=== PATIENT | female | born 1975 | race Caucasian/White ===

== ENCOUNTER → 2016-09-22 | Outpatient (CLI) | payer BC ==
[~2016-09-22] MED LIST: FERR-63 PO; NEBI10TA2 PO; TRAM50TA3 PO; ZIAC10 PO
== END | disposition home or self-care (01) ==
LOC: MAMMO 07:33
PROVIDERS: ATTEND Internal Medicine Geriatric Medicine
DX: Z12.31 Encounter for screening mammogram for malignant neoplasm of breast (principal)
CPT/HCPCS: G0202

== ENCOUNTER → 2016-09-23 | Outpatient (CLI) | payer BC | END | disposition home or self-care (01) | LOC: CARD 08:56 | PROVIDERS: ATTEND Internal Medicine Geriatric Medicine | DX: I11.9 Hypertensive heart disease without heart failure (principal) | CPT/HCPCS: 93306 ==

== ENCOUNTER → 2016-10-09 | Outpatient (CLI) | payer BC ==
[~2016-10-09] MED LIST changes: -TRAM50TA3 PO; -ZIAC10 PO
== END | disposition home or self-care (01) ==
LOC: MAMMO 09:38
PROVIDERS: ATTEND Internal Medicine Geriatric Medicine
DX: R92.8 Other abnormal and inconclusive findings on diagnostic imaging of breast (principal)
CPT/HCPCS: 76641; G0206

== ENCOUNTER → 2016-10-13 | Outpatient (CLI) | payer BC | END | disposition home or self-care (01) | LOC: RAD 11:27 | PROVIDERS: ATTEND Internal Medicine Geriatric Medicine | DX: M25.461 Effusion, right knee (principal) | CPT/HCPCS: 73562 ==

== ENCOUNTER → 2016-10-15 | Outpatient (CLI) | payer BC | END | disposition home or self-care (01) | LOC: MRI 07:42 | PROVIDERS: ATTEND Internal Medicine Geriatric Medicine | DX: S83.211A Bucket-handle tear of medial meniscus, current injury, right knee, initial encounter (principal); S80.01XA Contusion of right knee, initial encounter; M65.9 Synovitis and tenosynovitis, unspecified; M25.461 Effusion, right knee; M94.261 Chondromalacia, right knee; X58.XXXA Exposure to other specified factors, initial encounter; Y93.89 Activity, other specified; Y92.89 Other specified places as the place of occurrence of the external cause; Y99.8 Other external cause status | CPT/HCPCS: 73721 ==

== ENCOUNTER → 2016-11-03 | Outpatient (CLI) | payer BC ==
[~2016-11-03] MED LIST changes: +TRAM50TA3 PO; +ZIAC10 PO
[2016-11-03 09:24] LABS: BASOPHILS % 1.3 % (0.0-2.0); EOSINOPHILS % 0.8 % (0.0-5.0); HEMATOCRIT. 39.2 % (36.0-48.0); HEMOGLOBIN. 13.4 g/dL (12.0-16.0); LYMPHOCYTES % 37.5 % (20.0-50.0); MEAN CORPUSCULAR HEMOGLOBIN 28.5 pg (28.0-32.0); MEAN CORPUSCULAR VOLUME 83.4 fL (81.0-99.0); MEAN PLATELET VOLUME 9.4 fl (7.4-10.4); NEUTROPHILS % 54.4 % (40.0-76.0); PLATELET 262 x1000/uL (130-400); RED CELL DISTRIBUTION WIDTH 14.4 % (11.6-14.6)
[2016-11-03 09:49] LABS: CARBON DIOXIDE 27 mEq/L (21-32); CHLORIDE 105 mEq/L (98-107); HDL CHOLESTEROL 40 mg/dL (40-59); LDL CHOLESTEROL 120 mg/dL (5-100); TOTAL IRON BINDING CAPACITY 296 ug/dL (250-450)
[2016-11-03 10:25] LABS: FOLIC ACID (FOLATE) SERUM 19.1 ng/mL (>5.38)
== END | disposition home or self-care (01) ==
LOC: LAB 08:52
PROVIDERS: ATTEND Internal Medicine Geriatric Medicine
DX: Z01.812 Encounter for preprocedural laboratory examination (principal); I10 Essential (primary) hypertension
CPT/HCPCS: 36415; 80053; 80061; 82306; 82607; 82728; 82746; 83036; 83540; 83550; 84443; 85025; 86592

== ENCOUNTER 2016-11-07 11:04 | Day surgery (SDC) | payer BC ==
[~2016-11-07] VITALS: Ht 152.4 cm; Wt 91.2 kg
[2016-11-07 11:37] LABS: UCG SCREEN NEGATIVE
[2016-11-07] MEDS ORDERED: LACTATED RINGERS 1,000 ML IV SCH (12:15)
[2016-11-07] MEDS ORDERED: MIDAZOLAM HCL 2 MG/2 ML VIAL ONE (12:30)
[2016-11-07] MEDS ORDERED: LIDOCAINE HCL 1% 20ML VIAL (Pyxis) INJ ONE (12:30)
[2016-11-07] MEDS ORDERED: PROPOFOL 200MG/20ML VIAL IV ONE (12:30)
[2016-11-07] MEDS ORDERED: BUPIVACAINE/EPINEPH/PF 0.25%/0.0005 10ML ONE (12:37)
[2016-11-07] MEDS ORDERED: FENTANYL CITRATE/PF 50MCG/ML 2ML VIAL ONE ×2 (12:38→13:22)
[2016-11-07] MEDS ORDERED: CEFAZOLIN SODIUM 1000MG/VIAL ONE (12:42)
[2016-11-07] MEDS ORDERED: DEXAMETHASONE 4MG/ML 1ML VIAL ONE (12:51)
[2016-11-07] MEDS ORDERED: ONDANSETRON HCL 4MG/2ML VIAL ONE (12:51)
[2016-11-07] MEDS ORDERED: SODIUM CHLORIDE 0.9% 1,000 ML IV SCH (13:51)
[2016-11-07] MEDS ORDERED: ONDANSETRON HCL 4MG/2ML VIAL IV PRN (14:00)
[2016-11-07] MEDS ORDERED: HYDROMORPHONE HCL/PF 2MG/ML CPJ IV PRN (14:00)
[2016-11-07 14:07] VITALS: BP 127/58
== END 2016-11-07 15:00 | disposition home or self-care (01) ==
LOC: OR 11:04
PROVIDERS: ATTEND Orthopaedic Surgery Sports Medicine
DX: S83.211A Bucket-handle tear of medial meniscus, current injury, right knee, initial encounter (principal); S83.281A Other tear of lateral meniscus, current injury, right knee, initial encounter; M22.41 Chondromalacia patellae, right knee; M23.91 Unspecified internal derangement of right knee; M65.861 Other synovitis and tenosynovitis, right lower leg; X58.XXXA Exposure to other specified factors, initial encounter; Y93.9 Activity, unspecified; Y92.89 Other specified places as the place of occurrence of the external cause; Y99.9 Unspecified external cause status; Z98.890 Other specified postprocedural states; I10 Essential (primary) hypertension; E66.01 Morbid (severe) obesity due to excess calories
CPT/HCPCS: 29879; 29881; 29882; 81025; 88304; 88311; C1713; J0171; J0690; J1100; J1170; J2250; J2405; J3010; J3490; J7120; J2704

== ENCOUNTER → 2017-11-26 | Outpatient (CLI) | payer BC ==
[2017-11-26 07:50] LABS: BASOPHILS % 1.2 % (0.0-2.0); EOSINOPHILS % 1.2 % (0.0-5.0); HEMATOCRIT. 33.2 % (36.0-48.0); HEMOGLOBIN. 10.9 g/dL (12.0-16.0); LYMPHOCYTES % 28.2 % (20.0-50.0); MEAN CORPUSCULAR HEMOGLOBIN 24.7 pg (28.0-32.0); MEAN CORPUSCULAR VOLUME 75.3 fL (81.0-99.0); MEAN PLATELET VOLUME 8.8 fl (7.4-10.4); MONOCYTES % 8.6 % (2.0-8.0); NEUTROPHILS % 60.8 % (40.0-76.0); PLATELET 360 x1000/uL (130-400); RED BLOOD CELL COUNT 4.41 mill/uL (4.2-5.4); RED CELL DISTRIBUTION WIDTH 18.2 % (11.6-14.6)
[2017-11-26 08:23] LABS: CLARITY URINE CLOUDY (CLEAR); COLOR URINE YELLOW (YELLOW); KETONES URINE NEGATIVE (NEGATIVE); LEUKOCYTE ESTERASE URINE NEGATIVE (NEGATIVE); NITRITE URINE NEGATIVE (NEGATIVE); OCCULT BLOOD URINE 3+ (NEGATIVE); PROTEIN URINE NEGATIVE (NEGATIVE); SPECIFIC GRAVITY URINE 1.022 (1.005-1.030); UROBILINOGEN URINE 0.2 E.U./dL (0.2-1.0)
[2017-11-26 08:24] LABS: CHLORIDE 106 mEq/L (98-107)
== END | disposition home or self-care (01) ==
LOC: LAB 07:01
PROVIDERS: ATTEND Internal Medicine Geriatric Medicine
DX: I10 Essential (primary) hypertension (principal); N39.0 Urinary tract infection, site not specified; R73.09 Other abnormal glucose
CPT/HCPCS: 36415; 80053; 81003; 83036; 85025; 87086

== ENCOUNTER 2018-06-21 09:30 | Emergency (ER) | payer BC ==
[~2018-06-21] VITALS: Ht 154.9 cm; Wt 100.0 kg
[2018-06-21 10:18] VITALS: BP 169/99
== END 2018-06-21 10:19 | disposition home or self-care (01) ==
LOC: ER 09:30
DX: H10.029 Other mucopurulent conjunctivitis, unspecified eye (principal); I10 Essential (primary) hypertension; F11.10 Opioid abuse, uncomplicated; Z91.040 Latex allergy status; Z98.890 Other specified postprocedural states
CPT/HCPCS: 99283

== ENCOUNTER → 2018-11-25 | Outpatient (CLI) | payer BC ==
[2018-11-25 07:23] LABS: BASOPHILS % 1.2 % (0.0-2.0); EOSINOPHILS % 1.1 % (0.0-5.0); HEMATOCRIT. 38.6 % (36.0-48.0); HEMOGLOBIN. 12.9 g/dL (12.0-16.0); LYMPHOCYTES % 39.7 % (20.0-50.0); MEAN CORPUSCULAR HEMOGLOBIN 26.4 pg (28.0-32.0); MEAN CORPUSCULAR VOLUME 78.7 fL (81.0-99.0); MONOCYTES % 6.5 % (2.0-8.0); NEUTROPHILS % 51.5 % (40.0-76.0); PLATELET 280 x1000/uL (130-400); RED CELL DISTRIBUTION WIDTH 16.6 % (11.6-14.6)
[2018-11-25 07:31] LABS: CLARITY URINE CLEAR (CLEAR); COLOR URINE DARK YELLOW (YELLOW); KETONES URINE TRACE (NEGATIVE); LEUKOCYTE ESTERASE URINE NEGATIVE (NEGATIVE); NITRITE URINE NEGATIVE (NEGATIVE); OCCULT BLOOD URINE NEGATIVE (NEGATIVE); PROTEIN URINE TRACE (NEGATIVE); SPECIFIC GRAVITY URINE 1.035 (1.005-1.030)
[2018-11-25 07:36] LABS: CHLORIDE 106 mEq/L (98-107)
[2018-11-25 07:45] LABS: LDL CHOLESTEROL 142 mg/dL (5-100)
[2018-11-25 07:48] LABS: HDL CHOLESTEROL 49 mg/dL (40-59)
[2018-11-25 07:49] LABS: TOTAL IRON BINDING CAPACITY 431 ug/dL (250-450)
[2018-11-25 08:30] LABS: FERRITIN 9 ng/mL (10-291)
[2018-11-25 08:31] LABS: CARCINO EMBRYONIC ANTIGEN 1.1 ng/ml
[2018-11-25 08:42] LABS: HEPATITIS B SURFACE ANTIGEN NEGATIVE
[2018-11-25 09:11] LABS: HEPATITIS A AB IGM NEGATIVE (NEGATIVE)
[2018-11-25 09:40] LABS: VITAMIN B12 SERUM 692 pg/mL (211-911)
[2018-11-26 09:08] LABS: HIV SCREEN 4G Non Reactive (Non Reactive); VITAMIN D 25-OH 36.9 ng/mL (30.0-100.0)
== END | disposition home or self-care (01) ==
LOC: LAB 06:45
PROVIDERS: ATTEND Internal Medicine Geriatric Medicine
DX: N39.0 Urinary tract infection, site not specified (principal); N95.9 Unspecified menopausal and perimenopausal disorder; E66.3 Overweight; I10 Essential (primary) hypertension
CPT/HCPCS: 36415; 80061; 81003; 82306; 82378; 82607; 82728; 83036; 83540; 83550; 84443; 86003; 86005; 86592; 86705; 86709; 86803; 87340; 87389

== ENCOUNTER → 2018-11-26 | Outpatient (CLI) | payer BC | END | disposition home or self-care (01) | LOC: MAMMO 07:40 | PROVIDERS: ATTEND Internal Medicine Geriatric Medicine | DX: Z12.31 Encounter for screening mammogram for malignant neoplasm of breast (principal) | CPT/HCPCS: 77067 ==

== ENCOUNTER → 2019-02-01 | Outpatient (CLI) | payer BC ==
[2019-02-01 10:56] LABS: CLARITY URINE CLEAR (CLEAR); COLOR URINE YELLOW (YELLOW); KETONES URINE NEGATIVE (NEGATIVE); LEUKOCYTE ESTERASE URINE NEGATIVE (NEGATIVE); NITRITE URINE NEGATIVE (NEGATIVE); OCCULT BLOOD URINE NEGATIVE (NEGATIVE); PROTEIN URINE NEGATIVE (NEGATIVE); SPECIFIC GRAVITY URINE 1.015 (1.005-1.030); UROBILINOGEN URINE 0.2 E.U./dL (0.2-1.0)
== END | disposition home or self-care (01) ==
LOC: LAB 10:06
PROVIDERS: ATTEND Internal Medicine Geriatric Medicine
DX: N39.0 Urinary tract infection, site not specified (principal)
CPT/HCPCS: 81003

== ENCOUNTER → 2019-05-04 | Outpatient (CLI) | payer BC ==
[2019-05-04 07:36] LABS: BASOPHILS % 1.2 % (0.0-2.0); EOSINOPHILS % 0.8 % (0.0-5.0); HEMATOCRIT. 39.2 % (36.0-48.0); HEMOGLOBIN. 13.2 g/dL (12.0-16.0); LYMPHOCYTES % 34.7 % (20.0-50.0); MEAN CORPUSCULAR HEMOGLOBIN 27.6 pg (28.0-32.0); MEAN CORPUSCULAR VOLUME 81.6 fL (81.0-99.0); MEAN PLATELET VOLUME 9.1 fl (7.4-10.4); MONOCYTES % 6.7 % (2.0-8.0); NEUTROPHILS % 56.6 % (40.0-76.0); PLATELET 272 x1000/uL (130-400); RED CELL DISTRIBUTION WIDTH 15.8 % (11.6-14.6)
[2019-05-04 08:00] LABS: CHLORIDE 106 mEq/L (98-107)
[2019-05-04 08:09] LABS: LDL CHOLESTEROL 115 mg/dL (5-100)
[2019-05-04 08:10] LABS: HDL CHOLESTEROL 48 mg/dL (40-59)
== END | disposition home or self-care (01) ==
LOC: LAB 06:53
PROVIDERS: ATTEND Internal Medicine Geriatric Medicine
DX: I10 Essential (primary) hypertension (principal); E66.01 Morbid (severe) obesity due to excess calories; D50.9 Iron deficiency anemia, unspecified
CPT/HCPCS: 36415; 80053; 80061; 83036; 85025

== ENCOUNTER → 2019-11-14 | Outpatient (CLI) | payer BC ==
[2019-11-14 07:01] LABS: HEMATOCRIT. 40.3 % (36.0-48.0); HEMOGLOBIN. 13.7 g/dL (12.0-16.0); LYMPHOCYTES % 34.6 % (20.0-50.0); MEAN CORPUSCULAR HEMOGLOBIN 28.8 pg (28.0-32.0); MEAN CORPUSCULAR VOLUME 84.8 fL (81.0-99.0); MEAN PLATELET VOLUME 9.4 fl (7.4-10.4); MONOCYTES % 8.9 % (2.0-8.0); NEUTROPHILS % 54.5 % (40.0-76.0); PLATELET 259 x1000/uL (130-400); RED BLOOD CELL COUNT 4.75 mill/uL (4.2-5.4); RED CELL DISTRIBUTION WIDTH 14.6 % (11.6-14.6)
[2019-11-14 07:10] LABS: CHLORIDE 107 mEq/L (98-107)
== END | disposition home or self-care (01) ==
LOC: LAB 06:27
PROVIDERS: ATTEND Internal Medicine Geriatric Medicine
DX: Z20.828 Contact with and (suspected) exposure to other viral communicable diseases (principal); I10 Essential (primary) hypertension; E66.01 Morbid (severe) obesity due to excess calories; R42 Dizziness and giddiness
CPT/HCPCS: 36415; 80053; 83036; 83735; 84443; 85025; 87635; C9803

== ENCOUNTER → 2019-11-16 | Outpatient (CLI) | payer BC | END | disposition home or self-care (01) | LOC: US 07:43 | PROVIDERS: ATTEND Internal Medicine Geriatric Medicine | DX: K76.89 Other specified diseases of liver (principal); R16.0 Hepatomegaly, not elsewhere classified | CPT/HCPCS: 76700 ==

== ENCOUNTER → 2020-01-31 | Outpatient (CLI) | payer BC | END | disposition home or self-care (01) | LOC: LAB 07:46 | PROVIDERS: ATTEND Internal Medicine Geriatric Medicine | DX: R42 Dizziness and giddiness (principal); I10 Essential (primary) hypertension; E66.01 Morbid (severe) obesity due to excess calories; Z20.828 Contact with and (suspected) exposure to other viral communicable diseases | CPT/HCPCS: C9803; U0003 ==

== ENCOUNTER → 2020-02-02 | Outpatient (CLI) | payer BC | END | disposition home or self-care (01) | LOC: MAMMO 08:20 | PROVIDERS: ATTEND Internal Medicine Geriatric Medicine | DX: Z12.31 Encounter for screening mammogram for malignant neoplasm of breast (principal) | CPT/HCPCS: 77067 ==

== ENCOUNTER → 2020-02-28 | Outpatient (CLI) | payer BC ==
[2020-02-28 07:29] LABS: CHLORIDE 103 mEq/L (98-107)
[2020-02-28 07:33] LABS: PHOSPHORUS 3.9 mg/dL (2.5-4.9)
== END | disposition home or self-care (01) ==
LOC: LAB 06:46
PROVIDERS: ATTEND Internal Medicine Geriatric Medicine
DX: I10 Essential (primary) hypertension (principal); E87.6 Hypokalemia; G80.9 Cerebral palsy, unspecified
CPT/HCPCS: 36415; 80048; 83735; 84100

== ENCOUNTER → 2020-11-07 | Outpatient (CLI) | payer BC ==
[~2020-11-07] MED LIST changes: +BARIUM SULFATE 176 GM SUSP.RECON ONE; +EZ-HD SUSPENSION(BARIUM SULFATE 340GM) PO ONE
== END | disposition home or self-care (01) ==
LOC: RAD 08:08
PROVIDERS: ATTEND Internal Medicine Geriatric Medicine
DX: K44.9 Diaphragmatic hernia without obstruction or gangrene (principal); R19.2 Visible peristalsis; R07.0 Pain in throat
CPT/HCPCS: 74220; Z7610

== ENCOUNTER → 2021-03-29 | Outpatient (CLI) | payer BC ==
[~2021-03-29] MED LIST changes: -BARIUM SULFATE 176 GM SUSP.RECON ONE; -EZ-HD SUSPENSION(BARIUM SULFATE 340GM) PO ONE
== END | disposition home or self-care (01) ==
LOC: RAD 09:38
PROVIDERS: ATTEND Internal Medicine Geriatric Medicine
DX: M17.11 Unilateral primary osteoarthritis, right knee (principal); M25.761 Osteophyte, right knee; M25.561 Pain in right knee
CPT/HCPCS: 73562

== ENCOUNTER → 2021-04-03 | Outpatient (CLI) | payer BC | END | disposition home or self-care (01) | LOC: MRI 07:44 | PROVIDERS: ATTEND Internal Medicine Geriatric Medicine | DX: S83.241A Other tear of medial meniscus, current injury, right knee, initial encounter (principal); M17.11 Unilateral primary osteoarthritis, right knee; M94.261 Chondromalacia, right knee; M77.8 Other enthesopathies, not elsewhere classified; X58.XXXA Exposure to other specified factors, initial encounter; Y93.89 Activity, other specified; Y92.89 Other specified places as the place of occurrence of the external cause; Y99.8 Other external cause status | CPT/HCPCS: 73721 ==

== ENCOUNTER → 2021-07-09 | Outpatient (CLI) | payer BC ==
[~2021-07-09] MED LIST changes: +TRIA1TAB92 MT
[2021-07-09 10:10] LABS: CLARITY URINE CLEAR (CLEAR); COLOR URINE YELLOW (YELLOW); KETONES URINE TRACE (NEGATIVE); LEUKOCYTE ESTERASE URINE NEGATIVE (NEGATIVE); NITRITE URINE NEGATIVE (NEGATIVE); OCCULT BLOOD URINE NEGATIVE (NEGATIVE); PROTEIN URINE NEGATIVE (NEGATIVE); SPECIFIC GRAVITY URINE 1.028 (1.005-1.030)
[2021-07-09 10:11] LABS: BASOPHILS % 0.9 % (0.0-2.0); EOSINOPHILS % 0.7 % (0.0-5.0); HEMATOCRIT. 42.8 % (36.0-48.0); HEMOGLOBIN. 14.6 g/dL (12.0-16.0); LYMPHOCYTES % 33.9 % (20.0-50.0); MEAN CORPUSCULAR HEMOGLOBIN 29.6 pg (28.0-32.0); MEAN CORPUSCULAR VOLUME 86.5 fL (81.0-99.0); MEAN PLATELET VOLUME 9.2 fl (7.4-10.4); MONOCYTES % 5.9 % (2.0-8.0); NEUTROPHILS % 58.6 % (40.0-76.0); PLATELET 308 x1000/uL (130-400); RED BLOOD CELL COUNT 4.95 mill/uL (4.2-5.4); RED CELL DISTRIBUTION WIDTH 13.5 % (11.6-14.6)
[2021-07-09 10:20] LABS: PARTIAL THROMBOPLASTIN TIME 29.1 sec (23.4-31.0); PROTHROMBIN TIME 10.7 sec (9.6-11.0)
[2021-07-09 10:22] LABS: CHLORIDE 106 mEq/L (98-107)
== END | disposition home or self-care (01) ==
LOC: LAB 09:37
PROVIDERS: ATTEND Internal Medicine Geriatric Medicine
DX: Z01.818 Encounter for other preprocedural examination (principal); M23.3 Other meniscus derangements; N39.0 Urinary tract infection, site not specified
CPT/HCPCS: 36415; 71046; 80053; 81003; 85025

== ENCOUNTER → 2021-07-19 | Outpatient (CLI) | payer BC | END | disposition home or self-care (01) | LOC: LAB 10:37 | DX: Z20.822 Contact with and (suspected) exposure to COVID-19 (principal) | CPT/HCPCS: 87426 ==

== ENCOUNTER 2021-07-22 10:21 | Inpatient (IN) | payer BC ==
[~2021-07-22] VITALS: Ht 152.4 cm; Wt 82.2 kg
[~2021-07-22 10:21] MED LIST changes: +EPINEPHRINE 1:1000 1 MG/ML AMP ONE; +KETOROLAC 30MG/ML VIAL ONE; +MORPHINE SULFATE/PF 1MG/ML 10ML AMP ONE; +POLYMYXIN B SULFATE 500000 UNITS/VIAL ONE; +ROPIVACAINE HCL 10MG/ML 20 ML VIAL EPI ONE; +TRANEXAMIC ACID 1,000 MG in SODIUM CHLORIDE 0.9% 100 ML IV NR; -TRIA1TAB92 MT; +VANCOMYCIN HCL 1 GM/VIAL ONE
[2021-07-22] MEDS ORDERED: LIDOCAINE HCL/EPINEPHRINE 1%-EPI 1:100,000 20 ML VIAL ONE (10:27)
[2021-07-22 11:06] LABS: CHLORIDE 109 mEq/L (98-107)
[2021-07-22] MEDS ORDERED: LACTATED RINGERS 1,000 ML IV SCH (11:30)
[2021-07-22] MEDS ORDERED: MORPHINE SULFATE/PF 1MG/ML 10ML AMP ONE (11:43)
[2021-07-22] MEDS ORDERED: LIDOCAINE HCL 1% 20ML VIAL (Pyxis) INJ ONE (12:01)
[2021-07-22] MEDS ORDERED: ONDANSETRON HCL 4MG/2ML INJ ONE (12:01)
[2021-07-22] MEDS ORDERED: DEXAMETHASONE 4MG/ML 1ML VIAL ONE (12:01)
[2021-07-22] MEDS ORDERED: FENTANYL CITRATE/PF 50MCG/ML 2ML VIAL ONE (12:02)
[2021-07-22] MEDS ORDERED: MIDAZOLAM HCL 2 MG/2 ML VIAL ONE (12:02)
[2021-07-22] MEDS ORDERED: PROPOFOL 200MG/20ML VIAL IV ONE (12:02)
[2021-07-22] MEDS ORDERED: TRIA1TAB92 MT (12:04)
[2021-07-22] MEDS ORDERED: GLYCOPYRROLATE 0.2 MG/ML 2ML VIAL ONE (12:55)
[2021-07-22] MEDS ORDERED: POLYMYXIN B SULFATE 500000 UNITS/VIAL ONE (12:57)
[2021-07-22] MEDS ORDERED: HYDROMORPHONE HCL/PF 2MG/ML CPJ IV PRN (13:45)
[2021-07-22] MEDS ORDERED: MEPERIDINE HCL/PF 25MG/ML CPJ IV PRN (13:45)
[2021-07-22] MEDS ORDERED: LABETALOL 5MG/ML SYR 20 MG/4 ML SYRINGE IV PRN (13:45)
[2021-07-22] MEDS ORDERED: ONDANSETRON HCL 4MG/2ML INJ IV PRN (13:45)
[2021-07-22] MEDS ORDERED: MIDAZOLAM HCL 5 MG/5 ML VIAL ONE (14:05)
[2021-07-22] MEDS ORDERED: ROPIVACAINE HCL 10MG/ML 20 ML VIAL EPI ONE (14:13)
[2021-07-22] MEDS ORDERED: SKIN ADHESIVE 0.7 GM EA TOP ONE (14:17)
[2021-07-22] MEDS ORDERED: ACETAMINOPHEN 325MG TABLET PO PRN (14:45)
[2021-07-22] MEDS ORDERED: HYDROCODONE/ACETAMINOPHEN 10/325MG TABLET PO PRN (14:45)
[2021-07-22] MEDS ORDERED: KETOROLAC 30MG/ML VIAL IV PRN (15:00)
[2021-07-22] MEDS ORDERED: CEFAZOLIN 1000MG PREMIX 50 ML IV SCH (15:30)
[2021-07-22 16:00] VITALS: BP 143/88
[2021-07-22] MEDS ORDERED: NON FORMULARY PATIENT HOME MED XX SCH (17:30)
[2021-07-22] MEDS ORDERED: LACTULOSE 20G/30ML UDC PO PRN (17:30)
[2021-07-22 19:23] VITALS: BP 143/88
[2021-07-22 20:00] VITALS: BP 117/73
[2021-07-22] MEDS: ONDANSETRON HCL 4MG/2ML INJ IV PRN (20:14)
[2021-07-22] MEDS: CEFAZOLIN 1000MG PREMIX 50 ML IV SCH (20:17)
[2021-07-22] MEDS: LACTATED RINGERS 1,000 ML IV SCH (20:40)
[2021-07-22] MEDS: METOCLOPRAMIDE HCL 10MG/2ML VIAL IV SCH (22:04)
[2021-07-22] MEDS: SENNOSIDES/DOCUSATE SOD 8.6/50MG TABLET PO SCH (22:05)
[2021-07-23] VITALS: BP 106/67
[2021-07-23 04:00] VITALS: BP 114/74
[2021-07-23] MEDS: CEFAZOLIN 1000MG PREMIX 50 ML IV SCH ×3 (05:48→21:08)
[2021-07-23] MEDS: METOCLOPRAMIDE HCL 10MG/2ML VIAL IV SCH ×3 (05:48→23:43)
[2021-07-23] MEDS: LACTATED RINGERS 1,000 ML IV SCH ×2 (05:49→16:04)
[2021-07-23 06:37] LABS: CHLORIDE 102 mEq/L (98-107)
[2021-07-23 06:39] LABS: BASOPHILS % 0.1 % (0.0-2.0); HEMATOCRIT. 34.5 % (36.0-48.0); HEMOGLOBIN. 11.8 g/dL (12.0-16.0); LYMPHOCYTES % 7.9 % (20.0-50.0); MEAN CORPUSCULAR HEMOGLOBIN 29.8 pg (28.0-32.0); MEAN CORPUSCULAR VOLUME 86.9 fL (81.0-99.0); MEAN PLATELET VOLUME 9.3 fl (7.4-10.4); MONOCYTES % 7.5 % (2.0-8.0); NEUTROPHILS % 84.5 % (40.0-76.0); PLATELET 242 x1000/uL (130-400); RED BLOOD CELL COUNT 3.98 mill/uL (4.2-5.4); RED CELL DISTRIBUTION WIDTH 13.3 % (11.6-14.6)
[2021-07-23 07:00] LABS: TOTAL IRON BINDING CAPACITY 252 ug/dL (250-450)
[2021-07-23 08:00] VITALS: BP 119/70
[2021-07-23] MEDS: ASPIRIN 81MG TABLET PO SCH ×2 (08:52→16:56)
[2021-07-23] MEDS: NEBIVOLOL HCL 5 MG TABLET PO SCH (08:52)
[2021-07-23] MEDS: ONDANSETRON HCL 4MG/2ML INJ IV PRN (08:53)
[2021-07-23] MEDS: HYDROCODONE/ACETAMINOPHEN 5/325MG TABLET PO PRN ×4 (08:53→21:08)
[2021-07-23] MEDS ORDERED: PANTOPRAZOLE 40MG DR TABLET PO NR (10:00)
[2021-07-23 12:00] VITALS: BP 114/70
[2021-07-23 12:03] LABS: CLARITY URINE CLEAR (CLEAR); COLOR URINE YELLOW (YELLOW); KETONES URINE NEGATIVE (NEGATIVE); LEUKOCYTE ESTERASE URINE NEGATIVE (NEGATIVE); NITRITE URINE NEGATIVE (NEGATIVE); OCCULT BLOOD URINE NEGATIVE (NEGATIVE); PROTEIN URINE NEGATIVE (NEGATIVE); SPECIFIC GRAVITY URINE 1.015 (1.005-1.030); UROBILINOGEN URINE 0.2 E.U./dL (0.2-1.0)
[2021-07-23 16:00] VITALS: BP 126/72
[2021-07-23] MEDS ORDERED: NALOXONE HCL 0.4MG/ML VIAL IV PRN (16:45)
[2021-07-23 20:00] VITALS: BP 141/82
[2021-07-23] MEDS: SENNOSIDES/DOCUSATE SOD 8.6/50MG TABLET PO SCH (21:07)
[2021-07-24] VITALS (7 sets, daily range): BP systolic 146–180; BP diastolic 64–99
[2021-07-24] MEDS: HYDROCODONE/ACETAMINOPHEN 5/325MG TABLET PO PRN ×2 (00:21→03:54)
[2021-07-24] MEDS: LACTATED RINGERS 1,000 ML IV SCH ×2 (04:04→11:58)
[2021-07-24] MEDS: METOCLOPRAMIDE HCL 10MG/2ML VIAL IV SCH ×2 (06:07→14:00)
[2021-07-24] MEDS: NEBIVOLOL HCL 5 MG TABLET PO SCH (06:07)
[2021-07-24] MEDS: CEFAZOLIN 1000MG PREMIX 50 ML IV SCH ×2 (06:08→14:29)
[2021-07-24] MEDS ORDERED: PANTOPRAZOLE 40MG DR TABLET PO SCH (07:20)
[2021-07-24] MEDS: ASPIRIN 81MG TABLET PO SCH ×2 (08:24→17:00)
[2021-07-24] MEDS ORDERED: TRAMADOL 50MG TABLET PO PRN (09:30)
[2021-07-24] MEDS ORDERED: LACTULOSE 20G/30ML UDC PO NR (09:30)
[2021-07-24] MEDS ORDERED: TRAMADOL 50MG TABLET PO NR (09:30)
[2021-07-24] MEDS ORDERED: NEBIVOLOL HCL 5 MG TABLET PO SCH (09:49)
[2021-07-24 11:39] LABS: BASOPHILS % 0.3 % (0.0-2.0); EOSINOPHILS % 0.2 % (0.0-5.0); HEMATOCRIT. 33.3 % (36.0-48.0); HEMOGLOBIN. 11.6 g/dL (12.0-16.0); LYMPHOCYTES % 20.5 % (20.0-50.0); MEAN CORPUSCULAR HEMOGLOBIN 30.1 pg (28.0-32.0); MEAN CORPUSCULAR VOLUME 86.6 fL (81.0-99.0); MEAN PLATELET VOLUME 9.2 fl (7.4-10.4); MONOCYTES % 10.4 % (2.0-8.0); NEUTROPHILS % 68.6 % (40.0-76.0); PLATELET 248 x1000/uL (130-400); RED BLOOD CELL COUNT 3.85 mill/uL (4.2-5.4); RED CELL DISTRIBUTION WIDTH 13.9 % (11.6-14.6)
[2021-07-24] MEDS ORDERED: AMLODIPINE 5MG TABLET PO ONE ×3 (13:00→13:15)
[2021-07-24] MEDS ORDERED: AMLODIPINE 5MG TABLET PO NR ×2 (13:00→17:00)
[2021-07-24] MEDS ORDERED: CLONIDINE 0.1MG TABLET PO NR (17:00)
== END 2021-07-24 19:02 | disposition home or self-care (01) | DRG 470 ==
LOC: OR 10:21 → 6EST 10:22
PROC: 0SRC0JA Replacement of Right Knee Joint with Synthetic Substitute, Uncemented, Open Approach (ICD-10-PCS; principal; 2021-07-22)
DX: M17.31 Unilateral post-traumatic osteoarthritis, right knee (principal); D64.9 Anemia, unspecified; R74.01 Elevation of levels of liver transaminase levels; I10 Essential (primary) hypertension; D72.828 Other elevated white blood cell count; R11.0 Nausea; Z68.35 Body mass index [BMI] 35.0-35.9, adult; E78.5 Hyperlipidemia, unspecified; R73.9 Hyperglycemia, unspecified; M23.3 Other meniscus derangements; D72.829 Elevated white blood cell count, unspecified
CPT/HCPCS: 36415; 73562; 80048; 80053; 81003; 83540; 83550; 85025; 86850; 86900; 88305; 88311; 93970; 97116; 97162; 97530; 97535; 97760; C1776; J0690; J1100; J1885; J2250; J2274; J2405; J2704; J2765; J2795; J3010; J3370; J3490; J7050; J7120; L1830

== ENCOUNTER → 2021-08-29 | Outpatient (CLI) | payer BC ==
[~2021-08-29] MED LIST changes: -EPINEPHRINE 1:1000 1 MG/ML AMP ONE; -KETOROLAC 30MG/ML VIAL ONE; -MORPHINE SULFATE/PF 1MG/ML 10ML AMP ONE; -POLYMYXIN B SULFATE 500000 UNITS/VIAL ONE; -ROPIVACAINE HCL 10MG/ML 20 ML VIAL EPI ONE; -TRANEXAMIC ACID 1,000 MG in SODIUM CHLORIDE 0.9% 100 ML IV NR; +TRIA1TAB92 MT; -VANCOMYCIN HCL 1 GM/VIAL ONE
== END | disposition home or self-care (01) ==
LOC: RAD 08:21
DX: Z96.651 Presence of right artificial knee joint (principal)
CPT/HCPCS: 73560

== ENCOUNTER → 2022-03-21 | Outpatient (CLI) | payer BC | END | disposition home or self-care (01) | LOC: RAD 11:13 | PROVIDERS: ATTEND Internal Medicine Geriatric Medicine | DX: D25.9 Leiomyoma of uterus, unspecified (principal); N88.8 Other specified noninflammatory disorders of cervix uteri; N93.8 Other specified abnormal uterine and vaginal bleeding | CPT/HCPCS: 76830; 76856 ==

== ENCOUNTER → 2022-03-24 | Outpatient (CLI) | payer BC ==
[2022-03-24 08:42] LABS: EOSINOPHILS % 0.9 % (0.0-5.0); HEMATOCRIT. 39.7 % (36.0-48.0); HEMOGLOBIN. 13.8 g/dL (12.0-16.0); LYMPHOCYTES % 36.4 % (20.0-50.0); MEAN CORPUSCULAR HEMOGLOBIN 30.3 pg (28.0-32.0); MEAN CORPUSCULAR VOLUME 86.9 fL (81.0-99.0); MEAN PLATELET VOLUME 8.7 fl (7.4-10.4); MONOCYTES % 6.9 % (2.0-8.0); NEUTROPHILS % 54.8 % (40.0-76.0); PLATELET 322 x1000/uL (130-400); RED BLOOD CELL COUNT 4.57 mill/uL (4.2-5.4); RED CELL DISTRIBUTION WIDTH 13.7 % (11.6-14.6)
[2022-03-24 08:49] LABS: CLARITY URINE CLEAR (CLEAR); COLOR URINE YELLOW (YELLOW); KETONES URINE TRACE (NEGATIVE); LEUKOCYTE ESTERASE URINE NEGATIVE (NEGATIVE); NITRITE URINE NEGATIVE (NEGATIVE); OCCULT BLOOD URINE NEGATIVE (NEGATIVE); PROTEIN URINE NEGATIVE (NEGATIVE); SPECIFIC GRAVITY URINE 1.026 (1.005-1.030); UROBILINOGEN URINE 0.2 E.U./dL (0.2-1.0)
[2022-03-24 09:12] LABS: CHLORIDE 103 mEq/L (98-107)
[2022-03-24 09:26] LABS: HDL CHOLESTEROL 43 mg/dL (40-59); LDL CHOLESTEROL 131 mg/dL (5-100); T4 FREE 0.92 ng/dL (0.76-1.46); TOTAL IRON BINDING CAPACITY 297 ug/dL (250-450)
[2022-03-24 09:33] LABS: HCG SCREEN NEGATIVE
== END | disposition home or self-care (01) ==
LOC: LAB 08:04
PROVIDERS: ATTEND Internal Medicine Geriatric Medicine
DX: I10 Essential (primary) hypertension (principal); N93.9 Abnormal uterine and vaginal bleeding, unspecified
CPT/HCPCS: 36415; 80053; 80061; 81003; 83036; 83540; 83550; 84439; 84443; 84703; 85025

== ENCOUNTER → 2022-03-28 | Outpatient (CLI) | payer BC | END | disposition home or self-care (01) | LOC: LAB 09:26 | PROVIDERS: ATTEND Internal Medicine Geriatric Medicine | DX: Z00.00 Encounter for general adult medical examination without abnormal findings (principal) | CPT/HCPCS: 86304 ==

== ENCOUNTER → 2022-04-07 | Outpatient (CLI) | payer BC ==
[~2022-04-07] MED LIST changes: -ZIAC10 PO
[2022-04-07 12:33] LABS: CLARITY URINE CLEAR (CLEAR); COLOR URINE YELLOW (YELLOW); KETONES URINE NEGATIVE (NEGATIVE); LEUKOCYTE ESTERASE URINE NEGATIVE (NEGATIVE); NITRITE URINE NEGATIVE (NEGATIVE); OCCULT BLOOD URINE NEGATIVE (NEGATIVE); PROTEIN URINE NEGATIVE (NEGATIVE); UROBILINOGEN URINE 0.2 E.U./dL (0.2-1.0)
[2022-04-07 12:39] LABS: BASOPHILS % 0.9 % (0.0-2.0); EOSINOPHILS % 1.2 % (0.0-5.0); HEMATOCRIT. 39.3 % (36.0-48.0); HEMOGLOBIN. 13.8 g/dL (12.0-16.0); LYMPHOCYTES % 37.4 % (20.0-50.0); MEAN CORPUSCULAR HEMOGLOBIN 30.5 pg (28.0-32.0); MEAN CORPUSCULAR VOLUME 87.1 fL (81.0-99.0); MEAN PLATELET VOLUME 9.2 fl (7.4-10.4); MONOCYTES % 8.3 % (2.0-8.0); NEUTROPHILS % 52.2 % (40.0-76.0); PLATELET 264 x1000/uL (130-400); RED BLOOD CELL COUNT 4.51 mill/uL (4.2-5.4); RED CELL DISTRIBUTION WIDTH 13.7 % (11.6-14.6)
[2022-04-07 12:40] LABS: UCG SCREEN NEGATIVE
[2022-04-07 12:43] LABS: CHLORIDE 105 mEq/L (98-107)
[2022-04-07 12:46] LABS: PARTIAL THROMBOPLASTIN TIME 26.7 sec (23.4-31.0); PROTHROMBIN TIME 10.4 sec (9.6-11.0)
== END | disposition home or self-care (01) ==
LOC: LAB 11:56
PROVIDERS: ATTEND Obstetrics & Gynecology Obstetrics
DX: Z20.822 Contact with and (suspected) exposure to COVID-19 (principal)
CPT/HCPCS: 36415; 80048; 81003; 81025; 85025; 85610; 85730; 87426; C9803

== ENCOUNTER 2022-04-09 06:53 | Day surgery (SDC) | payer BC ==
[~2022-04-09] VITALS: Ht 152.4 cm; Wt 83.9 kg
[~2022-04-09 06:53] MED LIST changes: -TRIA1TAB92 MT; +TRIA1TAB92 PO
[2022-04-09 07:41] LABS: UCG SCREEN NEGATIVE
[2022-04-09] MEDS ORDERED: LACTATED RINGERS 1,000 ML IV SCH (07:45)
[2022-04-09] MEDS ORDERED: NEBI5TAB3 PO (09:29)
[2022-04-09] MEDS ORDERED: ONDANSETRON HCL 4MG/2ML INJ ONE (09:41)
[2022-04-09] MEDS ORDERED: METOCLOPRAMIDE HCL 10MG/2ML VIAL ONE (09:41)
== END 2022-04-09 11:35 | disposition home or self-care (01) ==
LOC: OR 06:53
PROVIDERS: ATTEND Obstetrics & Gynecology Obstetrics
DX: N93.9 Abnormal uterine and vaginal bleeding, unspecified (principal); I10 Essential (primary) hypertension; M19.90 Unspecified osteoarthritis, unspecified site; Z79.899 Other long term (current) drug therapy; Z98.890 Other specified postprocedural states; Z91.040 Latex allergy status; Z88.8 Allergy status to other drugs, medicaments and biological substances
CPT/HCPCS: 58558; 81025; 88305; J2405; J2765

== ENCOUNTER 2022-07-02 08:09 | Emergency (ER) | payer BC ==
[~2022-07-02] VITALS: Ht 162.6 cm; Wt 68.0 kg
[~2022-07-02 08:09] MED LIST changes: -FERR-63 PO; -NEBI10TA2 PO; +NEBI5TAB3 PO; -TRAM50TA3 PO
[2022-07-02] MEDS ORDERED: ACETAMINOPHEN 325MG TABLET PO STA (08:21)
[2022-07-02 08:56] LABS: EOSINOPHILS % 0.8 % (0.0-5.0); HEMATOCRIT. 40.5 % (36.0-48.0); LYMPHOCYTES % 39.7 % (20.0-50.0); MEAN CORPUSCULAR VOLUME 86.7 fL (81.0-99.0); MEAN PLATELET VOLUME 8.6 fl (7.4-10.4); MONOCYTES % 6.5 % (2.0-8.0); PLATELET 307 x1000/uL (130-400); RED BLOOD CELL COUNT 4.67 mill/uL (4.2-5.4); RED CELL DISTRIBUTION WIDTH 13.4 % (11.6-14.6)
[2022-07-02 09:06] LABS: CHLORIDE 105 mEq/L (98-107)
[2022-07-02 10:10] VITALS: BP 133/71
[2022-07-02] MEDS ORDERED: TOPUD PO (11:06)
== END 2022-07-02 11:35 | disposition home or self-care (01) ==
LOC: ER 08:09
DX: R07.2 Precordial pain (principal); R06.02 Shortness of breath; I10 Essential (primary) hypertension; Z91.040 Latex allergy status
CPT/HCPCS: 36415; 71045; 80053; 83880; 84484; 85025; 93005; 99285; Z7610

== ENCOUNTER → 2022-10-21 | Outpatient (CLI) | payer BC ==
[~2022-10-21] MED LIST changes: +TOPUD PO
[2022-10-21 09:08] LABS: CLARITY URINE CLOUDY (CLEAR); COLOR URINE ORANGE (YELLOW); GLUCOSE URINE NEGATIVE (NEGATIVE); KETONES URINE NEGATIVE (NEGATIVE); LEUKOCYTE ESTERASE URINE TRACE (NEGATIVE); NITRITE URINE POSITIVE (NEGATIVE); OCCULT BLOOD URINE NEGATIVE (NEGATIVE); PROTEIN URINE TRACE (NEGATIVE); SPECIFIC GRAVITY URINE 1.026 (1.005-1.030); UROBILINOGEN URINE 0.2 E.U./dL (0.2-1.0)
[2022-10-21 09:52] LABS: SQUAMOUS EPITHELIAL CELL URINE 1+ /lpf (RARE/1+); WBC URINE 0-2 /hpf (0-2)
[2022-10-21 09:53] LABS: BACTERIA URINE 1+; MUCUS URINE 2+ /lpf (< = 2+); YEAST URINE NONE SEEN
== END | disposition home or self-care (01) ==
LOC: LAB 08:11
PROVIDERS: ATTEND Internal Medicine Geriatric Medicine
DX: N39.0 Urinary tract infection, site not specified (principal)
CPT/HCPCS: 81003

== ENCOUNTER → 2022-10-27 | Outpatient (CLI) | payer BC ==
[2022-10-27 14:48] LABS: CLARITY URINE CLEAR (CLEAR); COLOR URINE YELLOW (YELLOW); GLUCOSE URINE NEGATIVE (NEGATIVE); KETONES URINE NEGATIVE (NEGATIVE); LEUKOCYTE ESTERASE URINE NEGATIVE (NEGATIVE); NITRITE URINE NEGATIVE (NEGATIVE); OCCULT BLOOD URINE NEGATIVE (NEGATIVE); PROTEIN URINE NEGATIVE (NEGATIVE); SPECIFIC GRAVITY URINE 1.019 (1.005-1.030); UROBILINOGEN URINE 0.2 E.U./dL (0.2-1.0)
== END | disposition home or self-care (01) ==
LOC: US 13:33
PROVIDERS: ATTEND Internal Medicine Geriatric Medicine
DX: N39.0 Urinary tract infection, site not specified (principal)
CPT/HCPCS: 76857; 81003

== ENCOUNTER → 2022-10-28 | Outpatient (CLI) | payer BC ==
[2022-10-28 08:55] LABS: CHLORIDE 103 mEq/L (98-107); INDEX HEMOLYSI 1 (1-3); INDEX ICTERIC 1 (1-4); INDEX LIPEMIC 1 (1-3); POTASSIUM 4.3 mEq/L (3.5-5.1); SODIUM 137 mEq/L (136-145)
[2022-10-28 09:05] LABS: ALANINE AMINOTRANSFERASE 42 IU/L (13-61); ALBUMIN 3.9 g/dL (3.4-5.0); ASPARTATE AMINOTRANSFERASE 22 IU/L (15-37); BILIRUBIN TOTAL 0.4 mg/dL (0.1-1.0); CALCIUM 9.6 mg/dL (8.5-10.1); CARBON DIOXIDE 30 mEq/L (21-32); CHOLESTEROL 163 mg/dL (<200); CREATININE 0.8 mg/dL (0.6-1.3); GLUCOSE 106 mg/dL (70-105); HDL CHOLESTEROL 37 mg/dL (40-59); IRON 76 ug/dL (50-175); LDL CHOLESTEROL 109 mg/dL (5-100); PROTEIN TOTAL 8.3 g/dL (6.0-8.3); TRIGLYCERIDE 133 mg/dL (0-150); UREA NITROGEN BLOOD 18 mg/dL (7-21)
[2022-10-28 12:25] LABS: EOSINOPHILS % 0.7 % (0.0-5.0); HEMATOCRIT. 40.5 % (36.0-48.0); HEMOGLOBIN. 13.9 g/dL (12.0-16.0); LYMPHOCYTES % 37.5 % (20.0-50.0); MEAN CORPUSCULAR HEMOGLOBIN 30.2 pg (28.0-32.0); MEAN CORPUSCULAR HGB CONC 34.3 g/dL (31.0-37.0); MEAN PLATELET VOLUME 9.8 fl (7.4-10.4); MONOCYTES % 7.2 % (2.0-8.0); NEUTROPHILS % 53.6 % (40.0-76.0); PLATELET 290 x1000/uL (130-400); RED CELL DISTRIBUTION WIDTH 13.3 % (11.6-14.6); WHITE BLOOD COUNT 6.8 x1000/uL (4.5-11.0)
[2022-10-28 13:31] LABS: VITAMIN B12 SERUM 444 pg/mL (211-911)
[2022-10-28 15:02] LABS: CLARITY URINE CLEAR (CLEAR); COLOR URINE YELLOW (YELLOW); GLUCOSE URINE NEGATIVE (NEGATIVE); KETONES URINE NEGATIVE (NEGATIVE); LEUKOCYTE ESTERASE URINE NEGATIVE (NEGATIVE); NITRITE URINE NEGATIVE (NEGATIVE); OCCULT BLOOD URINE NEGATIVE (NEGATIVE); PH URINE 5.5 (4.5-8.0); PROTEIN URINE NEGATIVE (NEGATIVE); SPECIFIC GRAVITY URINE 1.012 (1.005-1.030); UROBILINOGEN URINE 0.2 E.U./dL (0.2-1.0)
[2022-10-28 15:23] LABS: TOTAL IRON BINDING CAPACITY 270 ug/dL (250-450)
[2022-10-28 16:11] LABS: FERRITIN 82 ng/mL (10-291)
== END | disposition home or self-care (01) ==
LOC: LAB 08:16
PROVIDERS: ATTEND Internal Medicine Geriatric Medicine
DX: Z00.01 Encounter for general adult medical examination with abnormal findings (principal); E78.5 Hyperlipidemia, unspecified; R00.2 Palpitations; G90.8 Other disorders of autonomic nervous system; N93.0 Postcoital and contact bleeding; R07.89 Other chest pain; F41.0 Panic disorder [episodic paroxysmal anxiety]
CPT/HCPCS: 36415; 80053; 80061; 81003; 82306; 82607; 82728; 82746; 83036; 83540; 83550; 84443; 85025; 86592

== ENCOUNTER → 2022-12-16 | Outpatient (CLI) | payer BC | END | disposition home or self-care (01) | LOC: CT 07:48 | DX: S09.90XA Unspecified injury of head, initial encounter (principal); X58.XXXA Exposure to other specified factors, initial encounter; Y93.89 Activity, other specified; Y92.89 Other specified places as the place of occurrence of the external cause; Y99.8 Other external cause status ==

== ENCOUNTER → 2023-03-12 | Outpatient (CLI) | payer BC ==
[~2023-03-12] MED LIST changes: +NEBI5TAB2 PO; -NEBI5TAB3 PO
== END | disposition home or self-care (01) ==
LOC: MAMMO 10:40
PROVIDERS: ATTEND Internal Medicine Geriatric Medicine
DX: Z12.31 Encounter for screening mammogram for malignant neoplasm of breast (principal)
CPT/HCPCS: 77063; 77067

== ENCOUNTER → 2023-04-23 | Outpatient (CLI) | payer BC ==
[2023-04-23 10:55] LABS: BASOPHILS % 0.6 % (0.0-2.0); EOSINOPHILS % 0.5 % (0.0-5.0); HEMATOCRIT. 40.8 % (36.0-48.0); HEMOGLOBIN. 13.9 g/dL (12.0-16.0); LYMPHOCYTES % 36.4 % (20.0-50.0); MEAN CORPUSCULAR HEMOGLOBIN 30.3 pg (28.0-32.0); MEAN CORPUSCULAR HGB CONC 34.1 g/dL (31.0-37.0); MEAN CORPUSCULAR VOLUME 88.7 fL (81.0-99.0); MEAN PLATELET VOLUME 9.6 fl (7.4-10.4); MONOCYTES % 7.3 % (2.0-8.0); NEUTROPHILS % 55.2 % (40.0-76.0); PLATELET 283 x1000/uL (130-400); RED CELL DISTRIBUTION WIDTH 13.5 % (11.6-14.6); WHITE BLOOD COUNT 7.4 x1000/uL (4.5-11.0)
[2023-04-23 11:15] LABS: ALANINE AMINOTRANSFERASE 61 IU/L (10-49); ALBUMIN 4.5 g/dL (3.2-4.8); ASPARTATE AMINOTRANSFERASE 36 IU/L (<34); BILIRUBIN TOTAL 0.3 mg/dL (0.1-1.0); CALCIUM 9.6 mg/dL (8.7-10.4); CARBON DIOXIDE 29 mEq/L (21-32); CHLORIDE 105 mEq/L (98-107); CHOLESTEROL 180 mg/dL (<200); CREATININE 0.8 mg/dL (0.6-1.0); GLUCOSE 101 mg/dL (70-105); HDL CHOLESTEROL 44 mg/dL (>65); LDL CHOLESTEROL 122 mg/dL (5-100); POTASSIUM 3.6 mEq/L (3.5-5.1); PROTEIN TOTAL 7.6 g/dL (6.0-8.3); SODIUM 142 mEq/L (136-145); THYROID STIMULATING HORMONE 3.38 uIU/mL (0.55-4.78); TRIGLYCERIDE 233 mg/dL (0-150); UREA NITROGEN BLOOD 18 mg/dL (9-23)
[2023-04-23 19:41] LABS: HEPATITIS A AB IGM NEGATIVE (Negative); HEPATITIS B CORE AB IGM NEGATIVE (Negative); HEPATITIS B SURFACE ANTIGEN NEGATIVE (Negative); HEPATITIS C AB NON REACTIVE (Neg) (Negative)
[2023-04-24 19:11] LABS: CHLAMYDIA TRACHOMATIS NAA Negative (Negative); NEISSERIA GONORRHOEAE NAA Negative (Negative)
== END | disposition home or self-care (01) ==
LOC: LAB 10:15
PROVIDERS: ATTEND Internal Medicine Geriatric Medicine
DX: I10 Essential (primary) hypertension (principal); R73.09 Other abnormal glucose; E78.5 Hyperlipidemia, unspecified
CPT/HCPCS: 36415; 80053; 80061; 83036; 84443; 85025; 86705; 86709; 87340; 87491; 87591

== ENCOUNTER → 2023-12-04 | Outpatient (CLI) | payer BC ==
[~2023-12-04] MED LIST changes: -NEBI5TAB2 PO; +NEBI5TAB9 PO
[2023-12-04 08:10] LABS: CARBON DIOXIDE 29 mEq/L (21-32); CHLORIDE 104 mEq/L (98-107); POTASSIUM 3.6 mEq/L (3.5-5.1); SODIUM 139 mEq/L (136-145)
[2023-12-04 08:11] LABS: CALCIUM 9.9 mg/dL (8.7-10.4)
[2023-12-04 08:15] LABS: CREATININE 0.8 mg/dL (0.6-1.0)
[2023-12-04 08:16] LABS: GLUCOSE 115 mg/dL (70-105); TRIGLYCERIDE 101 mg/dL (0-150); UREA NITROGEN BLOOD 17 mg/dL (9-23)
[2023-12-04 08:17] LABS: ALANINE AMINOTRANSFERASE 58 IU/L (10-49); LDL CHOLESTEROL 147 mg/dL (5-100)
[2023-12-04 08:18] LABS: ALBUMIN 4.7 g/dL (3.2-4.8); ASPARTATE AMINOTRANSFERASE 33 IU/L (<34); BILIRUBIN TOTAL 0.5 mg/dL (0.1-1.0); CHOLESTEROL 206 mg/dL (<200); HDL CHOLESTEROL 44 mg/dL (>65); PROTEIN TOTAL 8.1 g/dL (6.0-8.3)
[2023-12-04 08:20] LABS: THYROID STIMULATING HORMONE 1.77 uIU/mL (0.55-4.78)
[2023-12-04 08:26] LABS: GLUCOSE URINE NEGATIVE (NEGATIVE); KETONES URINE NEGATIVE (NEGATIVE)
[2023-12-04 08:49] LABS: FOLIC ACID (FOLATE) SERUM > 20.00 ng/mL (>5.38)
[2023-12-04 08:51] LABS: VITAMIN B12 SERUM 1101 pg/mL (211-911)
[2023-12-04 09:01] LABS: CLARITY URINE SL HAZY (CLEAR); COLOR URINE YELLOW (YELLOW); SPECIFIC GRAVITY URINE 1.024 (1.005-1.030)
[2023-12-04 09:02] LABS: HEPATITIS B SURFACE ANTIGEN NEGATIVE (Negative); LEUKOCYTE ESTERASE URINE NEGATIVE (NEGATIVE); NITRITE URINE NEGATIVE (NEGATIVE); OCCULT BLOOD URINE NEGATIVE (NEGATIVE); PH URINE 5.5 (4.5-8.0); PROTEIN URINE TRACE (NEGATIVE); SQUAMOUS EPITHELIAL CELL URINE 1+ /lpf (RARE/1+)
[2023-12-04 09:03] LABS: BACTERIA URINE 1+; RBC URINE 0-2 /hpf (0-2); WBC URINE 0-2 /hpf (0-2); YEAST URINE NONE SEEN
[2023-12-04 09:22] LABS: HEPATITIS A AB IGM NEGATIVE (Negative)
[2023-12-04 09:23] LABS: HEPATITIS B CORE AB IGM NEGATIVE (Negative); HEPATITIS C AB NON REACTIVE (Neg) (Negative)
[2023-12-05 04:07] LABS: HIV SCREEN 4G Non Reactive (Non Reactive)
[2023-12-05 17:06] LABS: CHLAMYDIA TRACHOMATIS NAA Negative (Negative); NEISSERIA GONORRHOEAE NAA Negative (Negative)
== END | disposition home or self-care (01) ==
LOC: LAB 07:21
PROVIDERS: ATTEND Internal Medicine Geriatric Medicine
DX: I10 Essential (primary) hypertension (principal); R73.03 Prediabetes
CPT/HCPCS: 36415; 80053; 80061; 81003; 82607; 82746; 83036; 84443; 86592; 86705; 86709; 87340; 87389; 87491; 87591

== ENCOUNTER → 2023-12-31 | Outpatient (CLI) | payer BC ==
[2023-12-31 12:01] LABS: CLARITY URINE CLEAR (CLEAR); COLOR URINE DARK YELLOW (YELLOW); GLUCOSE URINE NEGATIVE (NEGATIVE); KETONES URINE TRACE (NEGATIVE); LEUKOCYTE ESTERASE URINE NEGATIVE (NEGATIVE); NITRITE URINE NEGATIVE (NEGATIVE); OCCULT BLOOD URINE NEGATIVE (NEGATIVE); PROTEIN URINE TRACE (NEGATIVE); SPECIFIC GRAVITY URINE 1.034 (1.005-1.030)
[2023-12-31 12:18] LABS: CALCIUM OXALATE CRYSTALS URINE 1+ /lpf; WBC URINE 0-2 /hpf (0-2)
[2023-12-31 12:20] LABS: BACTERIA URINE 2+; RBC URINE 0-2 /hpf (0-2); SQUAMOUS EPITHELIAL CELL URINE 1+ /lpf (RARE/1+); YEAST URINE NONE SEEN
== END | disposition home or self-care (01) ==
LOC: LAB 11:13
PROVIDERS: ATTEND Internal Medicine Geriatric Medicine
DX: N39.0 Urinary tract infection, site not specified (principal)
CPT/HCPCS: 81003

== ENCOUNTER 2024-03-18 09:59 | Emergency (ER) | payer BC ==
[~2024-03-18] VITALS: Ht 154.9 cm; Wt 90.7 kg
[2024-03-18 10:15] VITALS: O2SAT 99
[2024-03-18 11:39] LABS: BASOPHILS % 0.2 % (0.0-2.0); EOSINOPHILS % 0.1 % (0.0-5.0); HEMATOCRIT. 42.1 % (36.0-48.0); HEMOGLOBIN. 14.3 g/dL (12.0-16.0); LYMPHOCYTES % 8.3 % (20.0-50.0); MEAN CORPUSCULAR VOLUME 88.1 fL (81.0-99.0); MEAN PLATELET VOLUME 9.5 fl (7.4-10.4); MONOCYTES % 6.1 % (2.0-8.0); NEUTROPHILS % 85.3 % (40.0-76.0); PLATELET 278 x1000/uL (130-400); RED BLOOD CELL COUNT 4.78 mill/uL (4.2-5.4); RED CELL DISTRIBUTION WIDTH 13.5 % (11.6-14.6)
[2024-03-18 11:44] LABS: CHLORIDE 103 mEq/L (98-107); POTASSIUM 3.8 mEq/L (3.5-5.1); SODIUM 137 mEq/L (136-145)
[2024-03-18 11:45] LABS: CALCIUM 9.7 mg/dL (8.7-10.4); CARBON DIOXIDE 27 mEq/L (21-32)
[2024-03-18 11:50] LABS: CREATININE 0.8 mg/dL (0.6-1.0); GLUCOSE 124 mg/dL (70-105)
[2024-03-18 11:51] LABS: UREA NITROGEN BLOOD 18 mg/dL (9-23)
[2024-03-18] MEDS: ONDANSETRON HCL 4MG/2ML INJ IV STA (11:51)
[2024-03-18] MEDS: SODIUM CHLORIDE 0.9% 1,000 ML IV ONE (11:51)
[2024-03-18] MEDS: FAMOTIDINE 20MG/2ML VIAL IV STA (11:51)
[2024-03-18] MEDS: KETOROLAC 30MG/ML VIAL IV STA (11:51)
[2024-03-18 11:52] LABS: ALANINE AMINOTRANSFERASE 58 IU/L (10-49); ALBUMIN 4.4 g/dL (3.2-4.8); ASPARTATE AMINOTRANSFERASE 37 IU/L (<34)
[2024-03-18 11:53] LABS: BILIRUBIN DIRECT 0.2 mg/dL (<=3.0); BILIRUBIN TOTAL 0.7 mg/dL (0.1-1.0); PROTEIN TOTAL 7.9 g/dL (6.0-8.3)
[2024-03-18] MEDS ORDERED: FAMO40TA7 MT (14:36)
[2024-03-18] MEDS ORDERED: D-ME473S50 PO (14:36)
[2024-03-18] MEDS ORDERED: BISM-77 PO (14:36)
[2024-03-18] MEDS ORDERED: ACET-2708 PO (14:36)
[2024-03-18 15:02] VITALS: BP 125/80; PULSE 75; RESP 18; TEMP 36.89184; O2SAT 100
== END 2024-03-18 15:05 | disposition home or self-care (01) ==
LOC: ER 10:22
DX: J06.9 Acute upper respiratory infection, unspecified (principal); K52.9 Noninfective gastroenteritis and colitis, unspecified; R11.10 Vomiting, unspecified; I10 Essential (primary) hypertension; Z96.659 Presence of unspecified artificial knee joint; Z79.899 Other long term (current) drug therapy; Z20.822 Contact with and (suspected) exposure to COVID-19
CPT/HCPCS: 80076; 80048; 87430; 83690; 85025; 87070; 87804 ×2; 87077; 36415; 71045; 96361; 96374; 96375; 99284; 87426; J3490; J1885; J2405; J7030; Z7610 ×3

== ENCOUNTER → 2024-12-28 | Outpatient (CLI) | payer BC ==
[~2024-12-28] MED LIST changes: +ACET-2708 PO; +BISM-77 PO; +D-ME473S50 PO; +FAMO40TA7 MT
[2024-12-28 11:40] LABS: CLARITY URINE CLEAR (CLEAR); COLOR URINE YELLOW (YELLOW); GLUCOSE URINE NEGATIVE (NEGATIVE); KETONES URINE TRACE (NEGATIVE); LEUKOCYTE ESTERASE URINE NEGATIVE (NEGATIVE); NITRITE URINE NEGATIVE (NEGATIVE); OCCULT BLOOD URINE NEGATIVE (NEGATIVE); PH URINE 5.0 (4.5-8.0); PROTEIN URINE NEGATIVE (NEGATIVE); SPECIFIC GRAVITY URINE 1.024 (1.005-1.030); UROBILINOGEN URINE 1.0 E.U./dL (0.2-1.0)
[2024-12-28 11:40] LABS: BASOPHILS % 0.9 % (0.0-2.0); EOSINOPHILS % 2.1 % (0.0-5.0); HEMATOCRIT. 39.9 % (36.0-48.0); HEMOGLOBIN. 13.5 g/dL (12.0-16.0); LYMPHOCYTES % 32.3 % (20.0-50.0); MEAN PLATELET VOLUME 9.4 fl (7.4-10.4); MONOCYTES % 7.5 % (2.0-8.0); NEUTROPHILS % 57.2 % (40.0-76.0); PLATELET 280 x1000/uL (130-400); RED BLOOD CELL COUNT 4.59 mill/uL (4.2-5.4); RED CELL DISTRIBUTION WIDTH 13.6 % (11.6-14.6)
[2024-12-28 11:54] LABS: CREATININE 0.8 mg/dL (0.6-1.0); TRIGLYCERIDE 212 mg/dL (0-150); UREA NITROGEN BLOOD 18 mg/dL (9-23)
[2024-12-28 11:55] LABS: LDL CHOLESTEROL 125 mg/dL (5-100)
[2024-12-28 11:56] LABS: ASPARTATE AMINOTRANSFERASE 46 IU/L (<34); BILIRUBIN TOTAL 0.4 mg/dL (0.1-1.0); PROTEIN TOTAL 7.9 g/dL (6.0-8.3)
[2024-12-28 12:32] LABS: HEPATITIS A AB IGM NEGATIVE (Negative)
[2024-12-28 12:33] LABS: HEPATITIS B CORE AB IGM NEGATIVE (Negative); HEPATITIS C AB NON REACTIVE (Neg) (Negative)
[2024-12-28 12:49] LABS: VITAMIN B12 SERUM > 2000 pg/mL (211-911)
[2024-12-31 06:10] LABS: CHLAMYDIA TRACHOMATIS NAA Negative (Negative); NEISSERIA GONORRHOEAE NAA Negative (Negative)
== END | disposition home or self-care (01) ==
LOC: LAB 10:41
PROVIDERS: ATTEND Internal Medicine Geriatric Medicine
DX: I10 Essential (primary) hypertension (principal); E78.5 Hyperlipidemia, unspecified; G90.9 Disorder of the autonomic nervous system, unspecified
CPT/HCPCS: 36415; 80053; 80061; 80074; 81001; 81003; 82607; 82728; 83036; 83540; 83550; 84443; 85025; 86592; 86705; 86709; 87340; 87491; 87591

== ENCOUNTER → 2025-01-30 | Outpatient (CLI) | payer BC ==
[2025-02-01 08:10] LABS: QFT MITOGEN VALUE >10.00 IU/mL (.); QFT TB GOLD PLUS Negative (Negative); QFT TB1 AG VALUE 0.05 IU/mL (.); QFT TB2 AG VALUE 0.06 IU/mL (.)
== END | disposition home or self-care (01) ==
LOC: LAB 01-27 09:39
PROVIDERS: ATTEND Internal Medicine Geriatric Medicine
DX: R05.9 Cough, unspecified (principal)
CPT/HCPCS: 36415; 84443; 86480